=== PATIENT | female | born 1965 ===

== ENCOUNTER 2017-03-22 08:26 | Day surgery (SDC) | payer BC ==
[2017-03-22 08:34] VITALS: BMI 23.7
--- NOTE | 2017-03-22 09:43 | CARD ---
APPROVED REPORT EKG Measurement Heart [id number] VT [id number] <Conclusion> Sinus bradycardia Possible Left atrial enlargement Borderline ECG
[2017-03-22 09:57] LABS: HEMOGLOBIN 12.6 g/dL (12.0-16.0); MEAN CELL VOLUME 97.3 fl (81.0-99.0); MEAN CORPUSCULAR HEMOGLOBIN 32.8 pg (27.0-31.0); MEAN CORPUSCULAR HGB CONC 33.7 g/dL (33.0-37.0); RBC 3.84 Mil/uL (3.80-5.20); RED CELL DISTRIBUTION WIDTH 12.1 % (11.5-14.5); WHITE BLOOD COUNT 6.3 K/uL (4.8-10.8)
[2017-03-22] MEDS ORDERED: Propofol 10 mg/ml Inj (20 ML) ONE ×2 (10:07→10:33)
[2017-03-22] MEDS ORDERED: Lactated Ringer's 1,000 ML IV ONE ×2 (10:10→10:55)
[2017-03-22] MEDS ORDERED: Midazolam 2 MG/2 ML VIAL ONE (10:29)
[2017-03-22] MEDS ORDERED: Lactated Ringer's 1,000 ML IV SCH (11:00)
[2017-03-22] MEDS ORDERED: HYDROmorphone 0.5 mg/0.5 ml ISec IVP PRN (11:00)
[2017-03-22 11:12] VITALS: O2SAT 100
[2017-03-22 12:37] VITALS: RESP 18
[2017-03-22 13:14] VITALS: BP 97/55; PULSE 68; TEMP 97.7
--- NOTE | 2017-03-26 09:36 | OP ---
PROCEDURE DATE: 03/22/2017 PREOPERATIVE DIAGNOSES: Missing intrauterine device string, unable to remove intrauterine device in office. POSTOPERATIVE DIAGNOSES: Missing intrauterine device string, unable to remove intrauterine device in office. SURGEON: Shawn Tirado MD ANESTHESIOLOGIST: Meet Kiran MD ANESTHESIA: General anesthesia. PROCEDURE: Removal of intrauterine device and insertion of new intrauterine device. DESCRIPTION OF PROCEDURE: With the patient in the dorsal lithotomy position under general anesthesia, the patient was prepped and draped in the usual sterile manner. After this was done, a straight catheter was used to empty the bladder. The patient was then examined under anesthesia. The weighted speculum was placed in the posterior vagina. Cervix was grasped anteriorly with a single-tooth tenaculum and dilated. The Maria C was used to remove the IUD, which was very simple. After this was done, the new IUD was inserted without any complication. The patient tolerated the procedure well and was taken to recovery room in satisfactory condition. Blood loss was minimal. Shawn Tirado MD
== END 2017-03-22 14:19 | disposition home or self-care (01) ==
LOC: H.OPSURG 08:26
PROVIDERS: ATTEND Specialist
DX: Z30.432 Encounter for removal of intrauterine contraceptive device (principal)
CPT/HCPCS: 36415; 58300; 58301; 85027; 88300; 88304; 93005; J1885; J2001; J2250; J2704; J3010; J7120